=== PATIENT | male | born 1930 | race Caucasian/White ===

== ENCOUNTER 2016-11-29 10:31 | Inpatient (IN) | payer MEDICARE, BC ==
[~2016-11-29] VITALS: Ht 177.8 cm; Wt 78.6 kg
[~2016-11-29 10:31] MED LIST: 1-ME1LIQ PO; ASPI81TA82 PO; IRON28TA PO; LEVO137T2 PO; MELO15 PO; MULT1TAB PO; NEXI40CA PO; OSTETAB3 PO; PENT400 PO; TRAM50 PO
[2016-11-29] MEDS ORDERED: ASPI325T PO (10:55)
[2016-11-29] MEDS ORDERED: DOXY100C PO (10:55)
[2016-11-29 10:56] VITALS: BP 182/85; PULSE 76; RESP 20; TEMP 97.9; O2SAT 98
[2016-11-29] MEDS ORDERED: LEVO-86 PO (10:56)
[2016-11-29] MEDS ORDERED: CLOP75TA PO (10:57)
[2016-11-29] MEDS ORDERED: VALS1TAB70 PO (10:57)
[2016-11-29] MEDS ORDERED: HYDR25TA5 PO (10:58)
[2016-11-29] MEDS ORDERED: PENT400T19 PO (10:59)
[2016-11-29] MEDS ORDERED: AMLO10TA2 PO (10:59)
[2016-11-29] MEDS ORDERED: NEXI40CA PO (11:02)
[2016-11-29] MEDS ORDERED: FERR1TAB58 PO (11:03)
[2016-11-29] MEDS ORDERED: CENTTAB PO (11:03)
[2016-11-29] MEDS ORDERED: GLUC1CAP14 PO (11:04)
[2016-11-29 11:36] LABS: AUTOMATED NEUTROPHIL # 3.4 TH/MM3 (1.8-7.7); BASOPHIL % 0.5 % (0.0-2.0); EOSINOPHIL # 0.4 TH/MM3 (0-0.4); EOSINOPHIL % 6.2 % (0.0-4.0); HEMATOCRIT 40.1 % (39.0-51.0); HEMO FLAGS DIFF FINAL; LYMPH % 24.5 % (9.0-44.0); LYMPHOCYTE # 1.4 TH/MM3 (1.0-4.8); MEAN CELL VOLUME 91.2 FL (80.0-100.0); MEAN CORPUSCULAR HEMOGLOBIN 31.3 PG (27.0-34.0); MEAN CORPUSCULAR HGB CONC 34.3 % (32.0-36.0); NEUT % 59.8 % (16.0-70.0); PLATELET COUNT 200 TH/MM3 (150-450); RED CELL DISTRIBUTION WIDTH 13.8 % (11.6-17.2); WHITE BLOOD COUNT 5.7 TH/MM3 (4.0-11.0)
[2016-11-29 11:42] LABS: APTT (PATIENT) 28.7 SEC (24.3-30.1); INTERNATIONAL NORMALIZED RATIO 0.9 RATIO; PROTHROMBIN TIME - PATIENT 10.4 SEC (9.8-11.6)
[2016-11-29 11:56] LABS: BICARBONATE 26.2 MEQ/L (21.0-32.0); POTASSIUM 5.1 MEQ/L (3.5-5.1)
[2016-11-29] MEDS: SODIUM CHLOR 0.9% 1000 ML INJ 1,000 ML IV SCH ×3 (12:00→19:48)
[2016-11-29] MEDS ORDERED: ONDANSETRON HCL 4 MG/2 ML VIAL IVP PRN (12:15)
[2016-11-29] MEDS ORDERED: SENNOSIDES 8.6 MG TAB PO PRN (12:15)
[2016-11-29] MEDS ORDERED: PROCHLORPERAZINE 25 MG SUPP PR PRN (12:15)
[2016-11-29] MEDS ORDERED: SODIUM CHLORIDE 0.9% FLUSH 5 ML FLUSH FLUSH PRN (12:15)
[2016-11-29] MEDS ORDERED: BISACODYL 10 MG SUPP PR PRN (12:15)
[2016-11-29] MEDS ORDERED: ENALAPRILAT 2.5 MG/2 ML VIAL IV PUSH PRN (12:15)
[2016-11-29] MEDS ORDERED: hydrALAZINE HCL 20 MG/ML VIAL IV PUSH PRN (12:15)
--- NOTE | 2016-11-29 12:15 | HHI.HP ---
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 The patient came for right carotid endarterectomy today. He denies having any pain at this time. No chest pain, shortness of breath, palpitations, nausea, vomiting, diarrhea or constipation. Denies fevers or chills. 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 Past Surgical History History of neck and throat cancer with radiation and surgery 15 years ago Skin cancer with excisions Reported Medications Reported Meds & Active Scripts Active Reported Glucosamine-Chondroitin 500-400 Mg Cap 1 Cap PO DAILY Centrum Silver (Multiple Vitamins W/ Minerals) 1 Tab 1 Tab PO DAILY Iron (Ferrous Sulfate) 50 Mg Tab 50 Mg PO DAILY Nexium (Esomeprazole DR) 40 Mg Capdr 40 Mg PO DAILY Pentoxifylline CR (Pentoxifylline) 400 Mg Tab 400 Mg PO TID Amlodipine (Amlodipine Besylate) 10 Mg Tab 10 Mg PO DAILY Hydrochlorothiazide 25 Mg Tab 25 Mg PO DAILY Clopidogrel (Clopidogrel Bisulfate) 75 Mg Tab 75 Mg PO DAILY Valsartan 320 Mg Tab 320 Mg PO DAILY Synthroid (Levothyroxine Sodium) 137 Mcg Tab 137 Mcg PO DAILY Aspirin 325 Mg Tab 325 Mg PO DAILY Doxycycline Hyclate 100 Mg Cap 100 Mg PO BID Allergies: Coded Allergies: No Known Allergies (Unverified , 01/10/16) Family History Mother had heart problems as away at the age of 74 Father had kidney problems and blood clots, at the age of 62 Social History History of smoking quit at the age of 56. Used to smoke for 32 years 1 pack per day. Denies alcohol use or illicit drug use. Physical Exam Vital Signs Vital Signs Date Time Temp Pulse Resp B/P Pulse Ox O2 Delivery O2 Flow Rate FiO2 11/29/16 11:07 98 Room Air 11/29/16 10:56 97.9 76 20 182/85 98 Physical Exam GENERAL: This is a very pleasant 86-year-old male, well-nourished, well- developed patient, in no apparent distress. SKIN: Neck with reddish discoloration of the skin he had radiation 15 years ago. No ecchymoses or lesions. Cool and dry. HEAD: Atraumatic. Normocephalic. No temporal or scalp tenderness. EYES: Pupils equal round and reactive. Extraocular motions intact. No scleral icterus. No injection or drainage. ENT: Nose without bleeding, purulent drainage or septal hematoma. Throat without erythema, tonsillar hypertrophy or exudate. Uvula midline. Airway patent. NECK: Skin discoloration did he had surgery and radiation 15 years ago. Trachea midline. Supple, nontender, no meningeal signs. CARDIOVASCULAR: Regular rate and rhythm without murmurs, gallops, or rubs. RESPIRATORY: Clear to auscultation. Breath sounds equal bilaterally. No wheezes , rales, or rhonchi. GASTROINTESTINAL: Abdomen soft, non-tender, nondistended. No hepato-splenomegaly , or palpable masses. No guarding. MUSCULOSKELETAL: Extremities without clubbing, cyanosis, or edema. No joint tenderness, effusion, or edema noted. No calf tenderness. Negative Homans sign bilaterally. NEUROLOGICAL: Awake and alert. Cranial nerves II through XII intact. Motor and sensory grossly within normal limits. Five out of 5 muscle strength in all muscle groups. Normal speech. Laboratory Laboratory Tests Test 11/29/16 11:15 White Blood Count 5.7 Red Blood Count 4.40 Hemoglobin 13.8 Hematocrit 40.1 Mean Corpuscular Volume 91.2 Mean Corpuscular Hemoglobin 31.3 Mean Corpuscular Hemoglobin 34.3 Concent Red Cell Distribution Width 13.8 Platelet Count 200 Mean Platelet Volume 8.7 Neutrophils (%) (Auto) 59.8 Lymphocytes (%) (Auto) 24.5 Monocytes (%) (Auto) 9.0 Eosinophils (%) (Auto) 6.2 Basophils (%) (Auto) 0.5 Neutrophils # (Auto) 3.4 Lymphocytes # (Auto) 1.4 Monocytes # (Auto) 0.5 Eosinophils # (Auto) 0.4 Basophils # (Auto) 0.0 CBC Comment DIFF FINAL Differential Comment Prothrombin Time 10.4 Prothromb Time International 0.9 Ratio Activated Partial 28.7 Thromboplast Time Sodium Level 141 Potassium Level 5.1 Chloride Level 107 Carbon Dioxide Level 26.2 Anion Gap 8 Blood Urea Nitrogen 34 Creatinine 1.26 Estimat Glomerular Filtration 54 Rate Random Glucose 90 Calcium Level 9.3 Result Diagram: 11/29/16 1115 11/29/16 1115 Assessment and Plan Assessment and Plan 86-year-old male with Carotid artery stenosis. Seen vy vascular surgeon, plan for CEA today. Management per vascular surgeon. 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 Stable. Restart home medications as appropriate. Monitor VS closely. VT ppx SCD/TEDs, chemoppx per surgeon Code Status Full code Discussed Condition With Patient, nurse, family at bedside Physician Certification 2 Midnight Certification Type: Admission for Inpatient Services Order for Inpatient Services The services are ordered in accordance with Medicare regulations or non- Medicare payer requirements, as applicable. In the case of services not specified as inpatient-only, they are appropriately provided as inpatient services in accordance with the 2-midnight benchmark. Estimated LOS (days): 3 days is the estimated time the patient will need to remain in the hospital, assuming treatment plan goals are met and no additional complications. Post-Hospital Plan: Home Kinza Mattson MD Nov 29, 2016 12:15
[2016-11-29] MEDS: PENTOXIFYLLINE 400 MG CONTROLLED RELEASE TAB PO SCH ×2 (13:00→21:32)
[2016-11-29] MEDS ORDERED: MIDAZOLAM HCL 5 MG/5 ML VIAL ONE (13:45)
[2016-11-29] MEDS ORDERED: fentaNYL CITRATE 250 MCG/5 ML AMP ONE (13:45)
[2016-11-29] MEDS ORDERED: VERAPAMIL INJ 10 MG/4 ML VIAL ONE (13:46)
[2016-11-29] MEDS ORDERED: ATROPINE SULFATE 1 MG/10 ML SYRINGE ONE (13:49)
[2016-11-29] MEDS ORDERED: HEPARIN SODIUM - IV 10,000 UNITS/10 ML VIAL ONE (14:54)
[2016-11-29] MEDS ORDERED: ceFAZolin 2 GM PREMIX 50 ML ONE (16:12)
[2016-11-29] MEDS ORDERED: THROMBIN (TOPICAL) 5,000 UNIT VIAL ONE (17:20)
[2016-11-29] MEDS ORDERED: IODIXANOL 320 MG/ML 50 ML VIAL (for RAD SPEC) I-ARTERIAL ONE (17:32)
--- NOTE | 2016-11-29 17:34 | RADRPT ---
EXAM DATE/TIME: 11/29/2016 14:28 [facility] COMPARISON: No previous studies available for comparison. INDICATIONS : Patient with a history of carotid stenosis. MEDICAL HISTORY : Tongue cancer Atherosclerotic disease of aorta Bilateral carotid stenosis Thyroid disease SURGICAL HISTORY : Bilateral radical neck dissection ENCOUNTER: Initial ACUITY: >1 year PAIN SCORE: 0/10 FLUORO TIME: 25.3 minutes IMAGE SERIES: 12 ACCESS SITE: Right Femoral artery SEDATION TIME: 75 minutes CONTRAST: 80 cc Visipaque (iodixanol) MEDICATION(S): 1.) 2 mg midazolam (Versed) IV 2.) 100 mcg fentanyl (Sublimaze) IV 3.) 10,000 units Heparin IV 4.) 2 g cefazolin (Ancef) IV Intra-procedural antibiotics were given as prescribed above. DEVICE(S): 1.) Right common carotid artery Protege [id number] stent (self expanding) 2.) Right common femoral artery 8FR Angio-Seal 3.) Right common femoral artery Syvek patch PROCEDURE : 1. Ultrasound guided puncture of the right common femoral artery. 2. Angiography of the right common femoral artery prior to closure device. 3. Conscious sedation with continuous EKG and oximetry monitoring. 4. Percutaneous closure of the femoral artery. 5. Angiography of the right internal carotid artery 6. angioplasty and stenting of the right internal carotid artery The risks, benefits and alternatives to the procedure were explained and verbal and written consent w as obtained. The site was prepped in sterile fashion. Full sterile technique was used, including ca p, mask, sterile gloves and gown and a large sterile sheet. Hand hygiene and 2% chlorhexidine and/or betadine/alcohol prep was utilized per protocol for cutaneous antisepsis. The skin and subcutaneous tissues were infiltrated with local anesthetic solution. With ultrasound and fluoroscopic guidance the right common femoral artery was punctured and a vascula r sheath was placed. Angiography of the common femoral artery was performed for evaluation prior to p ercutaneous closure device placement. The patient has a 2 aortic arch. Examination of the carotid artery demonstrates the lesion to be in t he internal carotid artery. Visible thrombus is not present. Ulceration is present. There is moderate calcification present. The lesion length is 15 millimeters. The minimal luminal diameter is one mill imeters. The diameter of the distal internal carotid artery for reference is 5 millimeters. The perce nt stenosis by NASCET criteria is 80 %. A TAVIA 2 catheter was placed in the right common carotid artery and oblique angiography was performed o marla the bifurcation. AP and lateral runs were obtained over the head. The catheter was exchanged for a 6 Serbian sheath and on systemic heparinization the prescribed spine next device was placed beyond t he stenosis into the cervical internal carotid artery. Angioplasty and stenting was performed with th e prescribed devices. Followup angiography demonstrates no significant residual stenosis less than 20 %. The intracranial circulation remains intact. The puncture site was closed with the prescribed clos ure device. The patient tolerated the procedure well and there were no complications. Conscious sedation was performed with the prescribed dosages and duration as above in the presence of an independent trained radiology nurse to assist in the monitoring of the patient. EKG and oximetry remained stable throughout the procedure. CONCLUSION: 1. Uncomplicated carotid artery stent placement as above. 2. Ultrasound examination at 6, 12, 18 and 24 months following procedure should be performed to evalu ate stent patency. John Lawson MD on November 29, 2016 at 17:29 Board Certified Radiologist. This report was verified electronically.
--- NOTE | 2016-11-29 17:47 | PD.RAD ---
Post Procedure Progress Note Pre Procedure Diagnosis: (1) Carotid stenosis Post Procedure Diagnosis: (1) Carotid stenosis Procedure Date: Nov 29, 2016 Supervising Radiologist: John Lawson Proceduralist/Assist: Sabrina June RT(R), RT Lisa(R) Anesthesia: Conscious Sedation Plan of Activity Patient to Unit: ROPU Patient Condition: Good See PACS Report for procedural detail/treatment Vascular-Arterial Procedure Procedure 1 Procedure Site: Right Carotid Procedure(s): Stent Placement Access Access Site(s): Right Femoral Artery Closure Site(s): Right vascular closure device John Lawson MD Nov 29, 2016 17:47
[2016-11-29] MEDS ORDERED: oxyCODONE/ACETAMINOPHEN 5 MG/325 MG TAB PO PRN (18:00)
[2016-11-29] MEDS ORDERED: ACETAMINOPHEN 325 MG TAB PO PRN (18:00)
[2016-11-29 18:01] VITALS: BP 186/93; PULSE 95; RESP 18; TEMP 97.7; O2SAT 95
[2016-11-29 18:30] VITALS: BP 161/76; PULSE 94; RESP 18; TEMP 97.7; O2SAT 95
[2016-11-29 19:00] VITALS: BP 137/87; PULSE 94; RESP 18; TEMP 98.3; O2SAT 96
[2016-11-29] MEDS: DOXYCYCLINE HYCLATE 100 MG CAP PO SCH (21:31)
[2016-11-29] MEDS: SODIUM CHLORIDE 0.9% FLUSH 5 ML FLUSH FLUSH SCH (21:32)
[2016-11-29 23:00] VITALS: BP 114/62; PULSE 65; RESP 18; TEMP 98.2; O2SAT 96
[2016-11-30 03:00] VITALS: BP 111/64; PULSE 91; RESP 18; TEMP 97.9; O2SAT 96
[2016-11-30 05:10] LABS: AUTOMATED NEUTROPHIL # 3.9 TH/MM3 (1.8-7.7); BASOPHIL % 0.5 % (0.0-2.0); EOSINOPHIL # 0.1 TH/MM3 (0-0.4); EOSINOPHIL % 2.3 % (0.0-4.0); HEMATOCRIT 33.1 % (39.0-51.0); HEMO FLAGS DIFF FINAL; LYMPH % 18.3 % (9.0-44.0); MEAN CELL VOLUME 90.6 FL (80.0-100.0); MEAN CORPUSCULAR HGB CONC 34.3 % (32.0-36.0); MONO % 9.9 % (0.0-8.0); PLATELET COUNT 167 TH/MM3 (150-450); RED BLOOD COUNT 3.65 MIL/MM3 (4.50-5.90); RED CELL DISTRIBUTION WIDTH 13.6 % (11.6-17.2); WHITE BLOOD COUNT 5.6 TH/MM3 (4.0-11.0)
[2016-11-30 05:41] LABS: BICARBONATE 24.8 MEQ/L (21.0-32.0); POTASSIUM 4.2 MEQ/L (3.5-5.1)
[2016-11-30] MEDS ORDERED: LEVOTHYROXINE SODIUM 112 MCG TAB PO SCH (06:00)
[2016-11-30] MEDS ORDERED: LEVOTHYROXINE SODIUM 25 MCG TAB PO SCH (06:00)
[2016-11-30 07:00] VITALS: BP 115/79; PULSE 70; RESP 18; TEMP 98.3; O2SAT 96
[2016-11-30 07:38] VITALS: O2SAT 99
[2016-11-30] MEDS ORDERED: OXYC1TAB63 PO (08:22)
--- NOTE | 2016-11-30 08:22 | HHI.DCPOC ---
Discharge Care Plan Goals to Promote Your Health * To prevent worsening of your condition and complications * To maintain your health at the optimal level Directions to Meet Your Goals Take your medications as prescribed Follow your dietary instruction Follow activity as directed Keep your appointments as scheduled Take your immunizations and boosters as scheduled If your symptoms worsen call your PCP, if no PCP go to Urgent Care Center or Emergency Room Smoking is Dangerous to Your Health. Avoid second hand smoke Call the 24-hour hour crisis hotline for domestic abuse at Kinza Mattson MD Nov 30, 2016 08:22
--- NOTE | 2016-11-30 08:25 | HHI.FF ---
Face to Face Verification Diagnosis: (1) Hypothyroidism (2) Hypertension (3) Carotid stenosis (4) H/O head and neck radiation (5) H/O neck surgery Physical Therapy Order: Evaluate and Treat Home Health Nursing Order: Medical education Signs/symptoms of disease process Medication education-adverse effect Nursing assessment with vital signs I have seen patient Jaguar Romero on 11/30/16. My clinical findings support the need for the requested home health care services because: Ltd mobility - disease progression I certify that my clinical findings support that this patient is homebound because: Post-op weakness Kinza Mattson MD Nov 30, 2016 08:25
[2016-11-30] MEDS: PENTOXIFYLLINE 400 MG CONTROLLED RELEASE TAB PO SCH ×2 (08:33→12:27)
[2016-11-30] MEDS: SODIUM CHLORIDE 0.9% FLUSH 5 ML FLUSH FLUSH SCH (08:34)
[2016-11-30] MEDS: DOXYCYCLINE HYCLATE 100 MG CAP PO SCH (08:34)
[2016-11-30] MEDS ORDERED: ASPIRIN 325 MG TAB PO SCH (09:00)
[2016-11-30] MEDS ORDERED: HYDROCHLOROTHIAZIDE 25 MG TAB PO SCH (09:00)
[2016-11-30] MEDS ORDERED: CLOPIDOGREL 75 MG TAB PO SCH (09:00)
[2016-11-30] MEDS ORDERED: VALSARTAN 160 MG TAB PO SCH (09:00)
[2016-11-30] MEDS ORDERED: PANTOPRAZOLE SOD 40 MG DELAYED RELEASE TAB PO SCH (09:00)
--- NOTE | 2016-11-30 10:48 | RADRPT ---
EXAM DATE/TIME: 11/29/2016 00:00 [facility] COMPARISON: No previous studies available for comparison. INDICATIONS : Patient with a history of carotid stenosis. MEDICAL HISTORY : tongue cancer bilateral carotid stenosis thyroid disease SURGICAL HISTORY : bilateral radical neck dissection ENCOUNTER: Initial ACUITY: 1 day PAIN SCORE: 0/10 IMAGE SERIES: 0 ACCESS SITE: Right Femoral artery MEDICATION(S): 1.) 5 Thrombin SC PROCEDURE : 1. thrombin injection The risks, benefits and alternatives to the procedure were explained and verbal and written consent w as obtained. The site was prepped in sterile fashion. Full sterile technique was used, including ca p, mask, sterile gloves and gown and a large sterile sheet. Hand hygiene and 2% chlorhexidine and/or betadine/alcohol prep was utilized per protocol for cutaneous antisepsis. The skin and subcutaneous tissues were infiltrated with local anesthetic solution. Prescribed dose was injected in the subcuta neous tissues adjacent to the artery. Hemostasis was obtained CONCLUSION: Uncomplicated thrombin injection as above John Lawson MD on November 30, 2016 at 10:20 Board Certified Radiologist. This report was verified electronically.
[2016-11-30 11:00] VITALS: BP 93/58; PULSE 67; RESP 15; TEMP 98.5; O2SAT 96
--- NOTE | 2016-11-30 11:26 | HHI.PR ---
Subjective Remarks Patient in nad. He is in the chair eating breakfast. Denies dysphagia. No pain. He was ambulating to the chair without any problems. Denies cp, sob, n/v/d/c. Right groin without hematoma, bleeding or pain. No fever or chills. Objective Vitals Vital Signs Date Time Temp Pulse Resp B/P Pulse Ox O2 Delivery O2 Flow Rate FiO2 11/30/16 11:00 98.5 67 15 93/58 96 11/30/16 07:38 99 21 11/30/16 07:00 98.3 70 18 115/79 96 11/30/16 03:00 97.9 91 18 111/64 96 11/29/16 23:00 98.2 65 18 114/62 96 11/29/16 22:30 21 11/29/16 19:00 98.3 94 18 137/87 96 11/29/16 18:30 97.7 94 18 161/76 95 11/29/16 18:01 97.7 95 18 186/93 95 I/O 11/29/16 11/29/16 11/29/16 11/30/16 11/30/16 11/30/16 07:00 15:00 23:00 07:00 15:00 23:00 Intake Total 800 ml Output Total 850 ml Balance -50 ml Intake Oral 800 ml Output Urine Total 850 ml # Bowel Movements 0 Result Diagram: 11/30/16 0439 11/30/16 0439 Imaging Last Impressions Vascular Stent Procedure 11/29/16 1110 Signed Impressions: Service Date/Time: Tuesday, November 29, 2016 14:28 - CONCLUSION: 1. Uncomplicated carotid artery stent placement as above. 2. Ultrasound examination at 6, 12, 18 and 24 months following procedure should be performed to evaluate stent patency. John Lawson MD Radiology Special Procedure 11/29/16 0000 Signed Impressions: Service Date/Time: Tuesday, November 29, 2016 00:00 - CONCLUSION: Uncomplicated thrombin injection as above John Lawson MD Objective Remarks GENERAL: This is a very pleasant 86-year-old male, well-nourished, well- developed patient, in no apparent distress. SKIN: Neck with reddish discoloration of the skin he had radiation 15 years ago. No ecchymoses or lesions. Cool and dry. HEAD: Atraumatic. Normocephalic. No temporal or scalp tenderness. EYES: Pupils equal round and reactive. Extraocular motions intact. No scleral icterus. No injection or drainage. ENT: Nose without bleeding, purulent drainage or septal hematoma. Throat without erythema, tonsillar hypertrophy or exudate. Uvula midline. Airway patent. NECK: Skin discoloration did he had surgery and radiation 15 years ago. Trachea midline. Supple, nontender, no meningeal signs. CARDIOVASCULAR: Regular rate and rhythm without murmurs, gallops, or rubs. RESPIRATORY: Clear to auscultation. Breath sounds equal bilaterally. No wheezes , rales, or rhonchi. GASTROINTESTINAL: Abdomen soft, non-tender, nondistended. No hepato-splenomegaly , or palpable masses. No guarding. MUSCULOSKELETAL: Right groin with dressing c/d/i. No bleeding, erythema, edema or hematoma. Extremities without clubbing, cyanosis, or edema. No joint tenderness, effusion, or edema noted. No calf tenderness. Negative Homans sign bilaterally. NEUROLOGICAL: Awake and alert. Cranial nerves II through XII intact. Motor and sensory grossly within normal limits. Five out of 5 muscle strength in all muscle groups. Normal speech. Procedures 11/29/[address] Tai 1. Ultrasound guided puncture of the right common femoral artery. 2. Angiography of the right common femoral artery prior to closure device. 3. Conscious sedation with continuous EKG and oximetry monitoring. 4. Percutaneous closure of the femoral artery. 5. Angiography of the right internal carotid artery 6. angioplasty and stenting of the right internal carotid artery A/P Assessment and Plan 86-year-old male with Carotid artery stenosis. S/p angioplasty and stenting of the right internal carotid artery 11/29/[address] Tai Management per vascular surgeon. 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 Stable. Restart home medications as appropriate. Monitor VS closely. VT ppx SCD/TEDs, chemoppx per surgeon Code Status Full code Discussed Condition With Patient, nurse Discharge Planning Improved Discharged in stable condition to home with home health. To follow up as OP with PCP and consultants Meds per med reconciliations Activity ad aris as tolerated Diet: healthy heart diet, mechanical soft CosmKinza andersen MD Nov 30, 2016 11:26
[2016-11-30] MEDS ORDERED: SODIUM CHLORID 0.9% 500 ML INJ 500 ML IV ONE (11:45)
== END 2016-11-30 14:30 | disposition home or self-care (01) | DRG 36 ==
LOC: HROP 10:31 → HRIP 10:33 → HROP 19:31 → HCVR 19:31
PROVIDERS: ADMIT Hospitalist; ATTEND Hospitalist
PROC: 037K3DZ Dilation of Right Internal Carotid Artery with Intraluminal Device, Percutaneous Approach (ICD-10-PCS; principal; 2016-11-29)
PROC: 3E05317 Introduction of Other Thrombolytic into Peripheral Artery, Percutaneous Approach (ICD-10-PCS; 2016-11-29)
DX: I65.21 Occlusion and stenosis of right carotid artery (principal); R13.10 Dysphagia, unspecified; I10 Essential (primary) hypertension; E03.9 Hypothyroidism, unspecified; Z85.819 Personal history of malignant neoplasm of unspecified site of lip, oral cavity, and pharynx; Z87.891 Personal history of nicotine dependence
CPT/HCPCS: 37215; 76937; 80048; 85025; 85610; 85730; 99152; 99153; C1725; C1760; C1769; C1876; C1884; C1887; C1894; G0269; J0461; J0690; J1644; J2250; J3010; J7030; J7040; Q9967

== ENCOUNTER 2016-12-06 13:04 | Day surgery (SDC) | payer MEDICARE, BC ==
[~2016-12-06 13:04] MED LIST changes: -1-ME1LIQ PO; +AMLO10TA2 PO; +ASPI325T PO; -ASPI81TA82 PO; +CENTTAB PO; +CLOP75TA PO; +DOXY100C PO; +FERR1TAB58 PO; +GLUC1CAP14 PO; +HYDR25TA5 PO; -IRON28TA PO; +LEVO-86 PO; -LEVO137T2 PO; -MELO15 PO; -MULT1TAB PO; -OSTETAB3 PO; +OXYC1TAB63 PO; -PENT400 PO; +PENT400T19 PO; -TRAM50 PO; +VALS1TAB70 PO
[2016-12-06 13:20] VITALS: BP 212/87; PULSE 64; RESP 20; TEMP 97.6; O2SAT 97
[2016-12-06] MEDS ORDERED: THROMBIN (TOPICAL) 5,000 UNIT VIAL ONE (15:12)
[2016-12-06 16:05] VITALS: BP 198/85; PULSE 66; RESP 20; O2SAT 95
--- NOTE | 2016-12-06 16:09 | PD.RAD ---
Post US Procedure Prog Note Pre Procedure Diagnosis: (1) Post catherization pseudoaneurysm; Rt femoral region Post Procedure Diagnosis: (1) Post catherization pseudoaneurysm; Rt femoral region Procedure Date: Dec 06, 2016 Supervising Radiologist: Pascual Olivares Plan of Activity Patient to Unit: ROPU Patient Condition: Good See PACS Report for procedural detail/treatment Biopsy Imaging Guidance: Ultrasound Treatment Area: Right femoral pseudoaneurysm treated with direct injection of 2000 units of thrombin. No residual flow s/p injection. Additional Detail: Follow up US in 10 days. Pascual Olivares MD Dec 06, 2016 16:09
[2016-12-06 16:20] VITALS: PULSE 67; RESP 16; O2SAT 94
--- NOTE | 2016-12-06 16:41 | RADRPT ---
EXAM DATE/TIME: 12/06/2016 14:38 [facility] COMPARISON: No previous studies available for comparison. INDICATIONS : Follow up carotid stent. MEDICAL HISTORY : Hypertension. Thyroid disease. Oralpharangeal cancer. Dysphagia. PAD. SURGICAL HISTORY : Tumor removal oralpharangeal. Angiography. Angioplasty. Stent right inter nal caroid artery. ENCOUNTER: Initial ACUITY: 1 day PAIN SCORE: 3/10 LOCATION: Right groin. AREA EVALUATED: Right groin. FINDINGS: Along the anterior margin of the right common femoral artery is a saccular pocket containing arterial flow. A neck communicating the common femoral artery to the aneurysm measures 24 mm in size. This st ructure measures approximately 2 cm in greatest dimension. CONCLUSION: 2 cm post catheterization pseudoaneurysm communicating with the right common femoral artery as described above. Pascual Olivares MD on December 06, 2016 at 16:38 Board Certified Radiologist. This report was verified electronically.
--- NOTE | 2016-12-06 17:01 | RADRPT ---
EXAM DATE/TIME: 12/06/2016 14:38 [facility] COMPARISON: No previous studies available for comparison. INDICATIONS : Right groin pseudoaneurysm. MEDICAL HISTORY : Hypertension. Thyroid disease. Throat cancer. Reproductive disorder. Dysphagia. PAD. SURGICAL HISTORY : Tumor removal oralpharangeal. Angiography. Angioplasty. Stent right internal caroid artery. ENCOUNTER: Initial ACUITY: 1 day PAIN SCORE: 3/10 LOCATION: Right groin. AREA EVALUATED: Right groin. PROCEDURE : 1. Ultrasound guided puncture of pseudoaneurysm. 2. Thrombin injection of pseudoaneurysm. The risks, benefits and alternatives to the procedure were explained and verbal and written consent w as obtained. The site was prepped in sterile fashion. Full sterile technique was used, including ca p, mask, sterile gloves and gown and a large sterile sheet. Hand hygiene and 2% chlorhexidine and/or betadine/alcohol prep was utilized per protocol for cutaneous antisepsis. Ultrasonography was performed of the pseudoaneurysm in the right groin. With ultrasound guidance the pulsatile mass was punctured and the prescribed dose of thrombin was injected. Followup ultrasound e xamination demonstrates complete stasis of flow within the pseudoaneurysm. CONCLUSION: Uncomplicated occlusion of pseudoaneurysm as above Pascual Olivares MD on December 06, 2016 at 16:58 Board Certified Radiologist. This report was verified electronically.
--- NOTE | 2016-12-07 13:35 | RADRPT ---
EXAM DATE/TIME: 12/06/2016 00:00 [facility] COMPARISON : No previous studies available for comparison. INDICATIONS : Follow up carotis stent OBJECTIVE: Temperature: 97.6 Heart Rate: 64 Blood Pressure: 212/87 Respiratory: 20 Oximetry: 97 PNEUMONIA VACCINE: YES HISTORY OF PRESENT ILLNESS: Excessive right groin and lower, bruising post catheterization. PAST MEDICAL HISTORY : Hypothyroidism. Hypertension. Carcinoma, not otherwise specified. PAST SURGICAL HISTORY : Carotid stent. tonsillectomy bilateral cataracts SOCIAL HISTORY : Social alcohol use. Tobacco;none. NKDA [id number] mg q.d. levothyroxine 137 mcg q.d. valsartan 320 mg q.d. Plavix (Clopidogrel Bisulfate) 75 mg q.d. hydrochlorothiazide 25 mg q.d. amlodipine 10 mg q.d. pentoxifylline 400 mg t.i.d. nexium 40 mg q.d. ferrous sulfate 50 mg q.d. multi vitamin q.d. PHYSICAL EXAMINATION: Focused evaluation was performed of the right groin. There is extensive ecchymosis and swelling throu ghout the right groin extending medially to the pubic region and penis. A pulsatile mass is identified beneath the right common femoral puncture site. Arterial flow to the right lower sternum is well-maintained. IMAGING STUDIES: Duplex ultrasound of the right common femoral region demonstrates a 2 cm saccular pseudoaneurysm orig inating from the anterior wall of the common femoral artery. The neck of the aneurysm measures 3-4 mm . Proximal femoral flow is otherwise well maintained. ASSESSMENT: 2 cm post catheterization pseudoaneurysm anterior to the right common femoral artery. PLAN: Ultrasound guided thrombin injection will be performed. TIME SPENT: 30 minutes Pascual Olivares MD on December 07, 2016 at 13:28 Board Certified Radiologist. This report was verified electronically.
== END 2016-12-06 17:30 | disposition home or self-care (01) ==
LOC: HROP 13:04 → HRIP 13:05 → HROP 17:30
PROVIDERS: ATTEND Radiology Body Imaging
DX: I72.8 Aneurysm of other specified arteries (principal); L76.32 Postprocedural hematoma of skin and subcutaneous tissue following other procedure; I65.21 Occlusion and stenosis of right carotid artery; I10 Essential (primary) hypertension; E07.9 Disorder of thyroid, unspecified; E03.9 Hypothyroidism, unspecified; Z79.02 Long term (current) use of antithrombotics/antiplatelets; Z85.819 Personal history of malignant neoplasm of unspecified site of lip, oral cavity, and pharynx; Z87.891 Personal history of nicotine dependence
CPT/HCPCS: 36002; 76942; 93926; G0463; 99213